=== PATIENT | female | born 1935 ===

== ENCOUNTER 2020-09-03 11:59 | Inpatient (IN) ==
[2020-09-03] MEDS ORDERED: NS 0.9% 1000 ml BAG 1,000 ML IV ONE (12:29)
[2020-09-03] MEDS: Morphine 2 MG/ML SYRINGE IV PRN ×4 (15:02→23:54)
[2020-09-03 15:51] LABS: ABS Basophils 0.1 10^3/ul (0-0.2); ABS Lymphocytes 0.7 10^3/ul (1.0-4.8); ABS Monocytes 0.8 10^3/ul (0-0.8); ABS Neutrophils 9.9 10^3/ul (1.5-7.7); Eosinophil % 0.2 %; Hematocrit 31 % (35-47); Mean Corpuscular HGB Conc 33 g/dL (31-36); Mean Corpuscular Hemoglobin 31 pg (27-31); Mean Corpuscular Volume 94 fL (80-97); Mean Platelet Volume 9.1 fL (7.4-10.4); Platelet Count 350 10^3/uL (150-450); Red Blood Count 3.26 10^6 /uL (3.70-4.87); Red Cell Distribution Width 15 % (10-15); White Blood Count 11.5 10^3/uL (3.5-10.8)
[2020-09-03 16:03] LABS: ALT 11 U/L (7-52); AST 17 U/L (13-39); Albumin 4.1 g/dL (3.2-5.2); Albumin/Globulin Ratio 1.5 (1-3); Alkaline Phosphatase 91 U/L (34-104); Anion Gap 13 mmol/L (2-11); BUN/Creatinine Ratio 26.8 (8-20); Blood Urea Nitrogen 68 mg/dL (6-24); CO2 Carbon Dioxide 18 mmol/L (22-32); Calcium 9.9 mg/dL (8.6-10.3); Chloride 105 mmol/L (101-111); EGFR African American 21.7 (>60); EGFR Non-African American 17.9 (>60); Globulin 2.8 g/dL (2-4); Glucose 129 mg/dL (70-100); Magnesium 2.5 mg/dL (1.9-2.7); Potassium 4.8 mmol/L (3.5-5.0); Sodium 136 mmol/L (135-145); Total Protein 6.9 g/dL (6.4-8.9)
[2020-09-03 16:17] LABS: TSH Ultra Thyroid Stim Horm 1.55 mcIU/mL (0.34-5.60)
[2020-09-03 16:24] LABS: Troponin I 0.19 ng/mL (<0.03)
[2020-09-03] MEDS ORDERED: Ondansetron 4 mg VIAL 2 MG/ML 2 ml VIAL IV PRN (17:11)
[2020-09-03 17:52] LABS: % Iron Saturation 11 % (15-55); Iron 42 ug/dL (50-212); Total Iron Binding Capacity 384 mcg/dL (250-450); Transferrin 274 mg/dL (203-362); Unsaturated Iron Binding < 369 ug/dL
[2020-09-03 18:12] LABS: Ferritin 176.5 ng/mL (11-307)
[2020-09-03 18:21] LABS: Vitamin D Total 25(OH) 57.5 ng/mL (20-50)
[2020-09-03 20:21] LABS: Salicylate < 2.50 mg/dL (<30)
[2020-09-03] MEDS: NS 0.9% 1000 ml BAG 1,000 ML IV SCH (20:48)
[2020-09-03 21:04] LABS: Troponin I 0.53 ng/mL (<0.03)
[2020-09-03] MEDS ORDERED: Heparin DRIP 25,000 UNITS BAG 25,000 UNITS/500 ML BAG IV SCH (21:45)
[2020-09-03] MEDS ORDERED: Heparin 5000 UNITS/ML 1 mL VIAL IV SCH (22:00)
[2020-09-03] MEDS ORDERED: Heparin 5000 UNITS/ML 1 mL VIAL SUBCUT SCH (22:00)
[2020-09-04 00:59] LABS: Troponin I 0.55 ng/mL (<0.03)
[2020-09-04 01:02] LABS: Urine Appearance Turbid; Urine Bilirubin Negative (Negative); Urine Blood 1+ (Negative); Urine Color Yellow; Urine Glucose Negative (Negative); Urine Ketones Negative (Negative); Urine Nitrite Negative (Negative); Urine Protein 2+(100 mg/dL) (Negative); Urine Specific Gravity 1.013 (1.010-1.030); Urine Urobilinogen Negative (Negative)
[2020-09-04 01:12] LABS: Urine Bacteria 1+ (Absent); Urine Red Blood Cell 3+(>10/hpf) (Absent); Urine White Blood Cell 3+(>20/hpf) (Absent)
[2020-09-04 04:06] LABS: ABS Basophils 0.1 10^3/ul (0-0.2); ABS Eosinophils 0.1 10^3/ul (0-0.6); ABS Lymphocytes 1.2 10^3/ul (1.0-4.8); ABS Neutrophils 6.5 10^3/ul (1.5-7.7); Eosinophil % 1.3 %; Hematocrit 28 % (35-47); Hemoglobin 9.2 g/dL (12.0-16.0); Mean Corpuscular HGB Conc 33 g/dL (31-36); Mean Corpuscular Hemoglobin 31 pg (27-31); Mean Corpuscular Volume 94 fL (80-97); Mean Platelet Volume 8.5 fL (7.4-10.4); Platelet Count 289 10^3/uL (150-450); Red Blood Count 2.96 10^6 /uL (3.70-4.87); Red Cell Distribution Width 15 % (10-15); White Blood Count 8.9 10^3/uL (3.5-10.8)
[2020-09-04 04:22] LABS: Anion Gap 9 mmol/L (2-11); BUN/Creatinine Ratio 25.3 (8-20); Blood Urea Nitrogen 62 mg/dL (6-24); CO2 Carbon Dioxide 19 mmol/L (22-32); Calcium 9.4 mg/dL (8.6-10.3); Chloride 111 mmol/L (101-111); EGFR African American 22.6 (>60); EGFR Non-African American 18.7 (>60); Glucose 123 mg/dL (70-100); Potassium 4.8 mmol/L (3.5-5.0); Sodium 139 mmol/L (135-145)
[2020-09-04 04:27] LABS: Troponin I 0.57 ng/mL (<0.03)
[2020-09-04 06:18] LABS: INR 1.09 (0.82-1.09)
[2020-09-04 07:34] LABS: Activated Partial Thrombo Time 102.3 seconds (26.0-38.0)
[2020-09-04] MEDS: Morphine 2 MG/ML SYRINGE IV PRN ×4 (08:04→18:00)
[2020-09-04] MEDS ORDERED: Lorazepam PYXIS KEY PRN (08:23)
[2020-09-04] MEDS: LORazepam 2 mg VIAL 1 ml IV PUSH PRN (08:41)
[2020-09-04] MEDS: Cholecalciferol (VIT D3) 1,000 unit TAB PO SCH (09:08)
[2020-09-04 09:27] LABS: Troponin I 0.56 ng/mL (<0.03)
[2020-09-04] MEDS ORDERED: Senna TAB 8.6 mg TAB PO PRN (10:16)
[2020-09-04] MEDS ORDERED: Polyethylene Glycol 3350 17 GM PACKET PO PRN (10:16)
[2020-09-04] MEDS: NS 0.9% 1000 ml BAG 1,000 ML IV SCH (12:41)
[2020-09-05] MEDS: Morphine 2 MG/ML SYRINGE IV PRN ×3 (03:05→12:48)
[2020-09-05 07:15] LABS: Hematocrit 26 % (35-47); Hemoglobin 8.7 g/dL (12.0-16.0); Mean Corpuscular HGB Conc 33 g/dL (31-36); Mean Corpuscular Hemoglobin 31 pg (27-31); Mean Corpuscular Volume 95 fL (80-97); Mean Platelet Volume 8.7 fL (7.4-10.4); Platelet Count 263 10^3/uL (150-450); Red Blood Count 2.78 10^6 /uL (3.70-4.87); Red Cell Distribution Width 15 % (10-15); White Blood Count 8.6 10^3/uL (3.5-10.8)
[2020-09-05] MEDS: NS 0.9% 1000 ml BAG 1,000 ML IV SCH (07:23)
[2020-09-05 07:28] LABS: BUN/Creatinine Ratio 24.2 (8-20); Calcium 8.8 mg/dL (8.6-10.3); EGFR African American 25.2 (>60); EGFR Non-African American 20.8 (>60); Potassium 4.7 mmol/L (3.5-5.0)
[2020-09-05] MEDS: Cholecalciferol (VIT D3) 1,000 unit TAB PO SCH (07:42)
[2020-09-05 11:17] LABS: Activated Partial Thrombo Time 24.6 seconds (26.0-38.0); INR 1.03 (0.82-1.09)
[2020-09-05] MEDS ORDERED: Famotidine IV 10 MG/ML 2 ml VIAL (20 mg) ONE (17:58)
[2020-09-05] MEDS ORDERED: Famotidine IV 10 MG/ML 2 ml VIAL (20 mg) IV SLOW PU ONE (18:14)
[2020-09-05] MEDS ORDERED: Midazolam 2 mg/2 ml VIAL 1 mg/ml 2 ml VIAL (2 mg) ONE (18:26)
[2020-09-05] MEDS ORDERED: fentaNYL 250 mcg/5 ml 50 MCG/ML 5 ml VIAL (250 MCG) ONE (18:26)
[2020-09-05] MEDS ORDERED: Rocuronium 50 mg VIAL 10 mg/ml 5 ml VIAL (50 mg) ONE (18:26)
[2020-09-05] MEDS ORDERED: EPHEDrine (Pressors) 50 MG/ML VIAL ONE (18:27)
[2020-09-05] MEDS ORDERED: Sterile Water for Inj 20 ML ONE (18:27)
[2020-09-05] MEDS ORDERED: Ketamine HCL 50 mg/ml 10 ml VIAL (500 MG) ONE (18:27)
[2020-09-05] MEDS ORDERED: Lidocaine 2% PF 5 ML VIAL ONE (18:31)
[2020-09-05] MEDS ORDERED: Phenylephrine IV 10 MG/ML 1 ml VIAL ONE (18:31)
[2020-09-05] MEDS ORDERED: Phenylephrine 40 mcg/mL 10mL (400mcg) SYRINGE ONE (18:31)
[2020-09-05] MEDS ORDERED: Bupivacaine 0.5% SDV PF 30ML VIAL ONE (18:33)
[2020-09-05] MEDS ORDERED: Propofol 10 MG/ML 20 ML BTL ONE (18:38)
[2020-09-05] MEDS ORDERED: Glycopyrrolate IV 0.2 MG/ML 1 ML VIAL ONE (21:23)
[2020-09-05] MEDS ORDERED: fentaNYL 100 mcg/2 ml 50 MCG/ML VIAL IV PRN (22:33)
[2020-09-05] MEDS ORDERED: Naloxone 0.4 mg VIAL 0.4 mg/ml 1 ml VIAL IV PRN (22:33)
[2020-09-05] MEDS ORDERED: Acetaminophen IV 1 GM/100ML 1,000 MG/100 ML VIAL IVPB PRN (22:33)
[2020-09-05] MEDS ORDERED: Ondansetron 4 mg VIAL 2 MG/ML 2 ml VIAL IV PRN (22:33)
[2020-09-06 00:39] LABS: Hematocrit 26 % (35-47); Hemoglobin 8.4 g/dL (12.0-16.0)
[2020-09-06 00:49] LABS: BUN/Creatinine Ratio 24.1 (8-20); EGFR African American 29.4 (>60); EGFR Non-African American 24.3 (>60); Potassium 4.8 mmol/L (3.5-5.0)
[2020-09-06] MEDS: Morphine 2 MG/ML SYRINGE IV PRN (01:56)
[2020-09-06] MEDS: NS 0.9% 1000 ml BAG 1,000 ML IV SCH ×2 (01:56→19:40)
[2020-09-06] MEDS: ceFAZolin 1 GM X 3 DOSES POST-OP Q8H (AddVan) IVPB SCH ×3 (02:29→18:27)
[2020-09-06 06:16] LABS: ABS Lymphocytes 0.4 10^3/ul (1.0-4.8); ABS Neutrophils 10.2 10^3/ul (1.5-7.7); Eosinophil % 0.2 %; Hematocrit 24 % (35-47); Hemoglobin 7.7 g/dL (12.0-16.0); Lymphocyte % 3.4 %; Mean Corpuscular HGB Conc 32 g/dL (31-36); Mean Corpuscular Hemoglobin 31 pg (27-31); Mean Corpuscular Volume 97 fL (80-97); Mean Platelet Volume 8.5 fL (7.4-10.4); Platelet Count 226 10^3/uL (150-450); Red Blood Count 2.51 10^6 /uL (3.70-4.87); Red Cell Distribution Width 16 % (10-15); White Blood Count 11.7 10^3/uL (3.5-10.8)
[2020-09-06 06:29] LABS: CO2 Carbon Dioxide 15 mmol/L (22-32); Calcium 8.4 mg/dL (8.6-10.3)
[2020-09-06 06:33] LABS: Anion Gap 13 mmol/L (2-11); Chloride 118 mmol/L (101-111); Sodium 146 mmol/L (135-145)
[2020-09-06 06:35] LABS: Blood Urea Nitrogen 44 mg/dL (6-24); EGFR African American 31.7 (>60); EGFR Non-African American 26.2 (>60); Glucose 129 mg/dL (70-100)
[2020-09-06] MEDS ORDERED: Aspirin EC 325 mg TAB.EC PO SCH (09:00)
[2020-09-06] MEDS: Cholecalciferol (VIT D3) 1,000 unit TAB PO SCH (09:53)
[2020-09-06 12:22] LABS: Troponin I 0.15 ng/mL (<0.03)
[2020-09-06 17:35] LABS: Hematocrit 24 % (35-47); Hemoglobin 7.6 g/dL (12.0-16.0)
[2020-09-06] MEDS: LORazepam 2 mg VIAL 1 ml IV PUSH PRN (19:40)
[2020-09-07 04:36] LABS: ABS Lymphocytes 0.6 10^3/ul (1.0-4.8); ABS Monocytes 1.1 10^3/ul (0-0.8); ABS Neutrophils 9.1 10^3/ul (1.5-7.7); Hematocrit 21 % (35-47); Hemoglobin 6.8 g/dL (12.0-16.0); Lymphocyte % 5.7 %; Mean Corpuscular HGB Conc 33 g/dL (31-36); Mean Corpuscular Hemoglobin 31 pg (27-31); Mean Corpuscular Volume 94 fL (80-97); Mean Platelet Volume 8.8 fL (7.4-10.4); Platelet Count 237 10^3/uL (150-450); Red Cell Distribution Width 16 % (10-15); White Blood Count 10.8 10^3/uL (3.5-10.8)
[2020-09-07 04:55] LABS: BUN/Creatinine Ratio 21.3 (8-20); Calcium 8.6 mg/dL (8.6-10.3); EGFR African American 26.2 (>60); EGFR Non-African American 21.6 (>60); Potassium 4.3 mmol/L (3.5-5.0)
[2020-09-07] MEDS: Levothyroxine 100 MCG/5 ML VIAL IV SCH (06:01)
[2020-09-07] MEDS: Morphine 2 MG/ML SYRINGE IV PRN ×2 (06:02→11:57)
[2020-09-07] MEDS: Cholecalciferol (VIT D3) 1,000 unit TAB PO SCH (10:52)
[2020-09-07] MEDS: Metoprolol Tartrate 5 mg VIAL 5 ml VIAL (1 mg/ml) IV SCH ×2 (16:47→22:18)
[2020-09-07] MEDS: NS 0.9% 1000 ml BAG 1,000 ML IV SCH ×2 (17:16→17:35)
[2020-09-07 18:51] LABS: Hematocrit 30 % (35-47); Hemoglobin 10.1 g/dL (12.0-16.0)
[2020-09-08] MEDS: Morphine 2 MG/ML SYRINGE IV PRN (02:13)
[2020-09-08] MEDS: NS 0.9% 1000 ml BAG 1,000 ML IV SCH (04:06)
[2020-09-08] MEDS: Metoprolol Tartrate 5 mg VIAL 5 ml VIAL (1 mg/ml) IV SCH ×4 (04:10→20:36)
[2020-09-08] MEDS: Levothyroxine 100 MCG/5 ML VIAL IV SCH (06:39)
[2020-09-08] MEDS ORDERED: Lactated Ringers 1000 ml BAG 1,000 ML IV SCH ×2 (09:00→10:24)
[2020-09-08 09:03] LABS: Hematocrit 32 % (35-47); Hemoglobin 10.6 g/dL (12.0-16.0)
[2020-09-08 09:19] LABS: BUN/Creatinine Ratio 25.5 (8-20); Calcium 8.7 mg/dL (8.6-10.3); EGFR African American 22.8 (>60); EGFR Non-African American 18.9 (>60)
[2020-09-08] MEDS: Polyethylene Glycol 3350 17 GM PACKET PO SCH ×3 (09:36→21:17)
[2020-09-08] MEDS: Cholecalciferol (VIT D3) 1,000 unit TAB PO SCH (09:55)
[2020-09-08] MEDS: D5W 1/2 NS 1000 ml BAG 1,000 ML IV SCH ×2 (10:41→16:49)
[2020-09-08] MEDS ORDERED: D5W 500 ml BAG 500 ML IV ONE (17:34)
[2020-09-08] MEDS: Sodium Citrate/Citric Acid LIQ 15 ML UDC PO SCH (20:37)
[2020-09-09] MEDS: D5W 1/2 NS 1000 ml BAG 1,000 ML IV SCH (05:10)
[2020-09-09] MEDS: Metoprolol Tartrate 5 mg VIAL 5 ml VIAL (1 mg/ml) IV SCH (05:30)
[2020-09-09 06:00] LABS: Calcium 7.7 mg/dL (8.6-10.3)
[2020-09-09 06:03] LABS: Potassium 5.5 mmol/L (3.5-5.0)
[2020-09-09 06:06] LABS: BUN/Creatinine Ratio 25.6 (8-20); EGFR African American 20.9 (>60); EGFR Non-African American 17.3 (>60)
[2020-09-09 06:13] LABS: Hematocrit 34 % (35-47); Hemoglobin 10.3 g/dL (12.0-16.0); Mean Corpuscular HGB Conc 31 g/dL (31-36); Mean Corpuscular Hemoglobin 31 pg (27-31); Mean Corpuscular Volume 101 fL (80-97); Mean Platelet Volume 9.1 fL (7.4-10.4); Platelet Count 152 10^3/uL (150-450); Red Blood Count 3.31 10^6 /uL (3.70-4.87); Red Cell Distribution Width 18 % (10-15); White Blood Count 7.9 10^3/uL (3.5-10.8)
[2020-09-09] MEDS: Levothyroxine 100 MCG/5 ML VIAL IV SCH (06:23)
[2020-09-09] MEDS ORDERED: Sodium Polystyrene ORAL.SUSP 15 GM/60 ML BTL PO ONE (08:00)
[2020-09-09] MEDS ORDERED: Aspirin EC 325 mg TAB.EC PO SCH (09:00)
[2020-09-09] MEDS: Sodium Citrate/Citric Acid LIQ 15 ML UDC PO SCH (10:43)
[2020-09-09] MEDS: Cholecalciferol (VIT D3) 1,000 unit TAB PO SCH (10:43)
[2020-09-09] MEDS: Polyethylene Glycol 3350 17 GM PACKET PO SCH ×2 (10:54→21:39)
[2020-09-09] MEDS: Morphine 2 MG/ML SYRINGE IV PRN (11:11)
[2020-09-09] MEDS ORDERED: Sodium Bicarb 650 mg (ANTACID) TAB PO SCH (11:30)
[2020-09-09] MEDS ORDERED: Atropine 1% (ORAL/SL) 15 ML BTL SL PRN (11:44)
[2020-09-09] MEDS: Morphine ORAL CONCENTRATE 5 MG/0.25 ML ORAL.SYRIN SL PRN (13:49)
[2020-09-09] MEDS: Sodium Bicarb 650 mg (ANTACID) TAB PO SCH ×2 (18:38→21:51)
[2020-09-09] MEDS: LORazepam 2 mg VIAL 1 ml IV PUSH PRN (21:48)
[2020-09-10] MEDS: LORazepam 2 mg VIAL 1 ml IV PUSH PRN (03:01)
[2020-09-10] MEDS: Sodium Bicarb 650 mg (ANTACID) TAB PO SCH ×5 (05:35→22:07)
[2020-09-10] MEDS: Polyethylene Glycol 3350 17 GM PACKET PO SCH ×2 (08:01→22:06)
[2020-09-10] MEDS: Morphine ORAL CONCENTRATE 5 MG/0.25 ML ORAL.SYRIN SL PRN ×2 (08:15→10:40)
[2020-09-11] MEDS: Morphine ORAL CONCENTRATE 5 MG/0.25 ML ORAL.SYRIN SL PRN ×3 (02:19→19:26)
[2020-09-11] MEDS: Sodium Bicarb 650 mg (ANTACID) TAB PO SCH ×5 (05:12→22:02)
[2020-09-11] MEDS: Polyethylene Glycol 3350 17 GM PACKET PO SCH ×2 (09:33→22:01)
[2020-09-12] MEDS: Morphine ORAL CONCENTRATE 5 MG/0.25 ML ORAL.SYRIN SL PRN ×3 (00:05→22:54)
[2020-09-12] MEDS: Sodium Bicarb 650 mg (ANTACID) TAB PO SCH ×5 (04:27→22:55)
[2020-09-12] MEDS: Polyethylene Glycol 3350 17 GM PACKET PO SCH ×2 (07:34→22:55)
[2020-09-13] MEDS: Sodium Bicarb 650 mg (ANTACID) TAB PO SCH ×5 (06:10→23:14)
[2020-09-13] MEDS: Polyethylene Glycol 3350 17 GM PACKET PO SCH ×2 (07:36→23:14)
[2020-09-13] MEDS: Morphine ORAL CONCENTRATE 5 MG/0.25 ML ORAL.SYRIN SL PRN ×2 (09:00→13:35)
[2020-09-14] MEDS: Morphine ORAL CONCENTRATE 5 MG/0.25 ML ORAL.SYRIN SL PRN ×2 (00:14→06:02)
[2020-09-14] MEDS: Sodium Bicarb 650 mg (ANTACID) TAB PO SCH ×3 (06:15→15:42)
[2020-09-14] MEDS: Polyethylene Glycol 3350 17 GM PACKET PO SCH ×2 (12:40→21:04)
[2020-09-15] MEDS: Polyethylene Glycol 3350 17 GM PACKET PO SCH (09:31)
[2020-09-16] MEDS: Morphine ORAL CONCENTRATE 5 MG/0.25 ML ORAL.SYRIN SL PRN ×3 (00:38→11:42)
[2020-09-17] MEDS: Morphine ORAL CONCENTRATE 5 MG/0.25 ML ORAL.SYRIN SL PRN ×2 (04:36→12:04)
[2020-09-18 08:08] VITALS: BP 169/70
== END 2020-09-18 09:15 | DRG 956 ==
LOC: ED 11:59 → SSU 17:03 → MEDTELE 22:27 → SSU 09-06 14:59
PROVIDERS: ADMIT Pediatrics; ATTEND Student in an Organized Health Care Education/Training Program